=== PATIENT | female | born 1985 | race American Indian/Alaskan Native ===

== ENCOUNTER 2016-11-09 12:20 | Emergency (ER) | payer SELFPAY ==
[2016-11-09 13:06] VITALS: BP 139/92
[2016-11-09] MEDS ORDERED: LET TOPICAL TP ONE (15:00)
--- NOTE | 2016-11-09 15:00 | Emergency Department Report ---
ED Female HPI - General Chief complaint: Rectal Pain Stated complaint: HEMORROID PAIN Time Seen by Provider: 11/09/16 14:34 Source: patient, RN/MD Mode of arrival: Ambulatory Limitations: No Limitations - History of Present Illness Initial comments: Patient here complaining of rectal pain and says she has an external hemorrhoid that is inflamed. Patient says she uses Preparation H without any relief. She also says she took hydrocodone for pain which helped a little. Pain is 10 out of 10 and throbbing. Denies any bleeding. Denies constipation. She says she has a hard time sitting because this when the pain is worse. Denies any fever or chills. Denies any abdominal pain. Denies any urinary burning frequency or urgency. Patient denies any medical problems or surgical history. MD Complaint: other (rectal hemorrhoid) Onset/Timin -: days(s) Location: other (rectal area) Radiation: non-radiating Severity: severe Severity scale (0 -10): 10 Quality: other (Throbbing) Consistency: constant Improves with: other (standing) Worsens with: movement, other (sitting) Are you Now?: No Associated Symptoms: denies: vaginal discharge, vaginal bleeding, abdominal pain , nausea/vomiting, fever/chills, headaches, loss of appetite, dysuria, hematuria , rash, seizure, shortness of breath, syncope, weakness - Related Data Sexually active: No Home Medications Medication Instructions Recorded Confirmed Last Taken No Known Home Medications [No 11/09/16 11/09/16 Unknown Reported Home Medications] Previous Rx's Medication Instructions Recorded Last Taken Type Acetaminophen/Codeine [Tylenol 1 tab PO Q6H PRN #12 tab 11/09/16 Unknown Rx /Codeine # 3 tab] Docusate Sodium [Colace] 100 mg PO BID #60 capsule 11/09/16 Unknown Rx Hydrocortisone [Procto-Med Hc] 30 gm RC TID #1 cream.appl 11/09/16 Unknown Rx Lidocaine Topical 5% [Xylocaine 35.44 gm TP TID PRN #1 tube 11/09/16 Unknown Rx Topical 5%] Allergies Allergy/AdvReac Type Severity Reaction Status Date / Time No Known Allergies Allergy Unverified 11/09/16 13:06 ED Review of Systems ROS: Stated complaint: HEMORROID PAIN Other details as noted in HPI Comment: All other systems reviewed and negative Constitutional: no symptoms reported Respiratory: no symptoms reported Cardiovascular: denies: chest pain, palpitations, edema, syncope Gastrointestinal: denies: abdominal pain, nausea, vomiting, diarrhea, constipation, hematemesis, melena, hematochezia Genitourinary: other (Hemrrhoid). denies: urgency, dysuria, frequency, hematuria, discharge, abnormal menses Skin: denies: rash Neurological: denies: headache, weakness, abnormal gait, vertigo ED Past Medical Hx - Past Medical History Previous Medical History?: No - Surgical History Past Surgical History?: No - Family History Family history: no significant - Social History Smoking Status: Never Smoker Substance Use Type: None - Medications Home Medications: Home Medications Medication Instructions Recorded Confirmed Last Taken Type Acetaminophen/Codeine [Tylenol 1 tab PO Q6H PRN #12 tab 11/09/16 Unknown Rx /Codeine # 3 tab] Docusate Sodium [Colace] 100 mg PO BID #60 capsule 11/09/16 Unknown Rx Hydrocortisone [Procto-Med Hc] 30 gm RC TID #1 cream.appl 11/09/16 Unknown Rx Lidocaine Topical 5% [Xylocaine 35.44 gm TP TID PRN #1 tube 11/09/16 Unknown Rx Topical 5%] No Known Home Medications [No 11/09/16 11/09/16 Unknown History Reported Home Medications] ED Physical Exam - General Limitations: No Limitations General appearance: alert, in no apparent distress - Head Head exam: Present: atraumatic, normocephalic, normal inspection - Eye Eye exam: Present: normal appearance, PERRL, EOMI. Absent: scleral icterus, conjunctival injection Pupils: Present: normal accommodation - ENT ENT exam: Present: normal exam, normal orophraynx, mucous membranes moist - Neck Neck exam: Present: normal inspection, full ROM. Absent: tenderness, lymphadenopathy - Respiratory Respiratory exam: Present: normal lung sounds bilaterally. Absent: respiratory distress, wheezes, rales, rhonchi, stridor, chest wall tenderness - Cardiovascular Cardiovascular Exam: Present: regular rate, normal rhythm, normal heart sounds. Absent: systolic murmur, diastolic murmur - GI/Abdominal GI/Abdominal exam: Present: soft, normal bowel sounds. Absent: distended, tenderness, guarding, rebound, rigid, organomegaly, mass, bruit, pulsatile mass , hernia - Rectal Rectal exam: Present: hemorrhoids, tenderness (hemorrhoid) - Extremities Exam Extremities exam: Present: normal inspection, full ROM, normal capillary refill. Absent: tenderness, pedal edema, joint swelling, calf tenderness - Back Exam Back exam: Present: normal inspection, full ROM. Absent: tenderness, CVA tenderness (R), CVA tenderness (L), muscle spasm, paraspinal tenderness, vertebral tenderness, rash noted - Neurological Exam Neurological exam: Present: alert, oriented X3, normal gait, reflexes normal. Absent: motor sensory deficit - Psychiatric Psychiatric exam: Present: normal affect, normal mood - Skin Skin exam: Present: warm, dry, intact, normal color. Absent: rash ED Course Vital Signs 11/09/16 12:59 Temperature 99.3 F Pulse Rate 79 Respiratory 18 Rate Blood Pressure 139/92 O2 Sat by Pulse 100 Oximetry - Reevaluation(s) Reevaluation #1: 11/09/16 16:49 Topical LET placed to hemrroid wid some relief. ED Medical Decision Making - Medical Decision Making ED course: Patient here reporting that she has the hemorrhoid on the outside of her rectal area that is very painful and she's been using preparation had H but it has not helped. She is that she also took hydrocodone which did not help her pain. Topical LET placed to hemorrhoid external rectum with minimal relief. Physical findings for single external hemorrhoid without any bleeding. Area is tender to palpate. I discussed diagnosis and treatment plan the patient and I expressed to her that she is to follow-up with her primary care physician and I'll also refer her to general surgery if prescription medication does not work. And discharged home in stable condition with prescription for Colace, Proctocort, topical viscous lidocaine and Tylenol 3. Patient with diagnosis of external hemorrhoid and rectal pain Critical care attestation.: If time is entered above; I have spent that time in minutes in the direct care of this critically ill patient, excluding procedure time. ED Disposition Clinical Impression: External hemorrhoids without complication, Rectal pain Disposition: - TO HOME OR SELFCARE Is pt being admited?: No Does the pt Need Aspirin: No Condition: Stable Instructions: Hemorrhoids (ED) Additional Instructions: Please please use medication for hemorrhoid as prescribed You can apply topical lidocaine to site 4 times daily for 2 days. You can take Tylenol No. 3 which will help pain but these do not drive or operate heavy machinery while taking this medication Take stool softener as prescribed Increase your fiber and fluid intake. See referral to general surgery for removal of hemorrhoid. Follow-up with primary care physician in 2-3 days and if he did not have one you can follow-up at [facility]. Prescriptions: Acetaminophen/Codeine [Tylenol /Codeine # 3 tab] 1 tab PO Q6H PRN #12 tab PRN Reason: Hemorrhoids Docusate Sodium [Colace] 100 mg PO BID #60 capsule Hydrocortisone [Procto-Med Hc] 30 gm RC TID #1 cream.appl Lidocaine Topical 5% [Xylocaine Topical 5%] 35.44 gm TP TID PRN #1 tube PRN Reason: Hemorrhoids Referrals: PRIMARY CAREMD [Primary Care Provider] - 2-3 Days [facility] [Outside] - 2-3 Days ELENO WEINBERG MD [Staff Physician] - 3-5 Days Forms: Work/School Release Form(ED)
== END 2016-11-09 17:12 | disposition home or self-care (01) ==
LOC: ED 12:20
DX: K64.4 Residual hemorrhoidal skin tags (principal); K62.89 Other specified diseases of anus and rectum
CPT/HCPCS: 99282; 99283